=== PATIENT | female | born 1955 | race Caucasian/White ===

== ENCOUNTER → 2016-06-03 | Outpatient (CLI) | payer MEDICARE, BC ==
[~2016-06-03] MED LIST: ASA CHILDREN'S81 MG PO; CEFTIN250 MG PO; CENTRUM SILVER1 EAC1 PO; CIPRO DPS250 MG PO; COLACE-DPS100 MG PO; CYMBALTA30 MG PO; CYMBALTA60 MG PO; DELTASONE DPS10 MG PO; EYE VITAMIN-MI1 EACH PO; FLEXERIL-DPS10 MG PO; K-TAB ER20 MEQ PO; KLOR-CON M2020 ME1 PO; LASIX DPS40 MG PO; LEVAQUIN DPS500 MG PO; MAALOX DPS30 ML PO; MILK OF MAGNESI10 ML PO; MOBIC DPS7.5 MG PO; MOBIC15 MG PO; NEURONTIN DPS300 MG PO; NEURONTIN DPS600 MG PO; NEXIUM20 MG PO; NEXIUM40 MG PO; OXY IR DPS5 MG PO; PERCOCET 5 DPS1 TAB PO; POLYETHYLENE GL17 GM PO; PRAVACHOL40 MG PO; PROVENTIL2.5 MG/3 M IH; SENOKOT S1 TAB PO; THERA1 EACH PO; TYLENOL DPS325 MG PO; ULTRAM DPS50 MG PO; VITAMIN D-32000 UNI1 PO; VITAMIN D2000 UNIT PO; XARELTO10 MG PO; ZESTRIL DPS20 MG PO; ZOFRAN ODT4 MG PO; ZONEGRAN100 MG PO; ZYLOPRIM-DPS100 MG PO
== END | disposition home or self-care (01) ==
LOC: RAD.S 05-25 16:14
DX: N63 Unspecified lump in breast (principal)

== ENCOUNTER 2016-08-15 18:35 | Emergency (ER) | payer MEDICARE, BC | END 2016-08-15 20:25 | disposition home or self-care (01) | DX: G43.909 Migraine, unspecified, not intractable, without status migrainosus (principal); G40.909 Epilepsy, unspecified, not intractable, without status epilepticus; Z88.8 Allergy status to other drugs, medicaments and biological substances; Z91.041 Radiographic dye allergy status; Z91.048 Other nonmedicinal substance allergy status; Z91.013 Allergy to seafood; Z79.899 Other long term (current) drug therapy ==